=== PATIENT | male | born 1990 | race Caucasian/White ===

== ENCOUNTER 2023-07-24 11:13 | Emergency (ER) | payer OTHER, SELFPAY ==
[2023-07-24 11:29] VITALS: BP 131/77; PULSE 83; RESP 16; TEMP 36.9; O2SAT 98; BMI 25.3
--- NOTE | 2023-07-24 11:39 | ED_ITS ---
HPI - Back Pain/Injury General Chief Complaint: Back Pain/Injury Stated Complaint: back pain Time Seen by Provider: 07/24/23 11:30 Source: patient Mode of arrival: ambulatory Limitations: no limitations History of Present Illness HPI Narrative: patient is a 32-year-old male who presents emergency department for evaluation of intermittent lower back pain with onset of symptoms yesterday morning. Pain is bilateral, noted to be radiating into the left lower quadrant of his abdomen. he has been experiencing urinary frequency without dysuria, hematuria. Denies nausea, vomiting, constipation, diarrhea. He also notes that he has a rash to his face he and the feet, his children currently have [id number] disease, he states that his rash is consistent with a bears. Denies recent precipitating injury, fevers, chills, bladder or bowel dysfunction, numbness or tingling of the perineum or bilateral legs. Denies any recent surgical procedures, any known immune compromising conditions, personal history of cancer, or IV drug usage. MD elicited complaint: back pain Related Data Allergies Allergy/AdvReac Type Severity Reaction Status Date / Time No Known Allergies Allergy Verified 07/24/23 11:29 Review of Systems Review of Systems: Yes all other systems are reviewed and are negative PMFSH Past Medical History Attestation statement: The following information was validated with the patient. Source: old records reviewed Social History Social History Advance Directives: No Advance Directives Information Provided: Yes Physical Exam Vital Signs: Vital Signs: Last Vital Signs Temp 98.4 F 07/24/23 11:29 Pulse 83 07/24/23 11:29 Resp 16 07/24/23 11:29 BP 131/77 07/24/23 11:29 Pulse Ox 98 07/24/23 11:29 O2 Del Method Room Air 07/24/23 11:29 BMI result Body Mass Index 25.3 Vital signs have been reviewed as normal and appeared to be correct. Blood pressure normal.? Heart rate normal.? Respiration rate normal. Temperature n ormal.? Oxygen saturation normal. Appearance: Alert.?Oriented to person, place and time. No acute distress.?Normal affect. Eyes: Pupils equal, round and reactive to light.? ENT: Pharynx normal.?? Neck: Normal inspection.? Neck supple.?? CVS: Heart sounds normal. Normal heart rate and rhythm.? Pulses normal; bilateral radial pulses 2+, bilateral posterior tibial/dorsalis pedis pulses 2+.? Respiratory: No respiratory distress.? Lung sounds clear to auscultation bilaterally?? Abdomen: Soft and non-tender. Normoactive bowel sounds. ? Skin: Skin warm and dry.? Normal skin color.? upon the bilateral hands, soles of bilateral feet, face with macular papular exanthem most consistent with [id number] disease Extremities: No lower extremity edema.? No calf ttp? Back: + mild paraspinal muscular tenderness from lumbar region to coccyx. no CVA tenderness. No midline spinal tenderness, step-off's, or deformity. Full ROM intact in bilateral lower extremities. Straight leg test Negative on right; Straight leg test negative on left. No rashes, lesions, areas of induration or fluctuance, or signs of infection noted., Neuro: Moves all extremities spontaneously. 5/5 strength in hip extension/flexion, abduction, adduction. Sensation to light touch intact bilaterally. Patellar and Achilles reflex 2+ bilaterally. No ataxia, gait normal and steady.. No focal neuro deficits. Medical Decision Making Medical Decision Making [facility] Narrative: patient is a 32-year-old male who presents emergency department for evaluation of back pain and concurrent rash. rash upon the bilateral hands, soles of bilateral feet, face with macular papular exanthem most consistent with [id number] disease ( less likely syphilis, not consistent with SJS, TENS), which may also be the etiology for his abdominal pain however, he does have diffuse lumbar paraspinal muscle tenderness upon palpation, left lower quadrant of the abdomen is nontender despite radiation of pain pulled abdomen is non lesion, no vomiting, no distension. less likely to be acute appendicitis, diverticulitis, colitis, obstruction, higher inclination to be muscular strain versus possible urinary tract infection versus pyelonephritis versus calculi. no focal neurological deficit and bladder bowel dysfunction, clinically lower suspicion for cauda equina syndrome, no high-risk past medical history to suggest epidural abscess, spinal abscess, malignancy, at this time no indication for emergent CT/MRI. Urinalysis is without evidence of proteinuria, microscopic hematuria, nor is it consistent with infection which is reassuring. discussed plan of care for discharge home, conservative treatment, alternating between acetaminophen and ibuprofen for pain. All questions answered. Stable for discharge. Differential Diagnosis Differential Diagnoses: The differential diagnosis associated with the presentation includes ( as noted above) Lab Data [facility] Lab Attestation statement: I reviewed the patient's lab results. Labs: Lab Results 07/24/23 Range/Units 12:04 Urine Color Yellow Urine Appearance Clear Urine pH 6.0 (5.0-9.0) Ur Specific [place] 1.025 (1.005-1.025) Urine Protein Negative (Neg-Trace) mg/dL Urine Glucose (UA) Negative (Negative) mg/dL Urine Ketones Negative (Negative) mg/dL Urine Blood Negative (Negative) Urine Nitrite Negative (Negative) Ur Leukocyte Esterase Negative (Negative) Independent Historian Clinical information obtained from an independent historian. History obtained from or confirmed by: Spouse ( Present at bedside who confirms history) Prescription Management I considered prescription management with: Pain Medication ( Acetaminophen/ibuprofen) Discharge Plan Discharge Clinical Impression: Hand, foot and mouth disease (HFMD) Patient Disposition: Home, Self-Care Instructions: Hand, Foot, and Mouth Disease (ED) Referrals: Parveen Rodriguez, [employer]ICER [Primary Care Provider] -
[2023-07-24 12:12] LABS: Appearance Urine Clear; Color Urine Yellow; Glucose Urine UA Negative (Negative); Leukocyte Esterase Urine Negative (Negative); Nitrite Urine Negative (Negative); Specific Gravity - Urine 1.025 (1.005-1.025); Urine Blood Negative (Negative); Urine Ketones Negative (Negative); Urine Protein Negative (Neg-Trace)
== END 2023-07-24 12:56 | disposition home or self-care (01) ==
PROVIDERS: Nurse Practitioner Family; Emergency Provider Emergency Medicine Emergency Medical Services; PCP Nurse Practitioner Family
DX: B08.4 Enteroviral vesicular stomatitis with exanthem (principal); R35.0 Frequency of micturition; M54.50 Low back pain, unspecified
CPT/HCPCS: 81003; 99282; 99283